=== PATIENT | female | born 1960 | race Caucasian/White ===

== ENCOUNTER → 2022-03-10 | Outpatient (CLI) | payer BC ==
[~2022-03-10] MED LIST: ALBU90I INH; AZIT250 PO; BACL10; CYCL10 PO; DIET MED; HYDACE5 PO; IBUP600 PO; PENVK500 PO; Pepcid40 MG PO; Percocet 5-3251 EACH PO; TRAM50 PO
[2022-03-10 15:51] LABS: Microalb/Creat Ratio UR, Rand 18.713 mg/g (0.000-30.000); Microalbumin, Random Urine 18.9 mg/L (0.000-20.000)
== END | disposition home or self-care (01) ==
LOC: LAB 13:37 → LAB SHORT 13:37
PROVIDERS: Family Medicine
DX: E11.65 Type 2 diabetes mellitus with hyperglycemia (principal)
CPT/HCPCS: 82043; 82570

== ENCOUNTER → 2022-08-01 | Outpatient (CLI) | payer BC | LOC: LAB SHORT 11:40 → LAB 11:40 | DX: R30.0 Dysuria (principal) | CPT/HCPCS: 87077; 87086; 87186 ==